=== PATIENT | male | born 1960 | race Caucasian/White ===

== ENCOUNTER 2021-10-12 14:07 | Emergency (ER) | payer OTHER ==
[2021-10-12] MEDS ORDERED: Sodium Chloride 0.9% 10 ML Syringe FLUSH PRN (14:42)
[2021-10-12] MEDS ORDERED: HYDROmorphone 0.5 MG/0.5 ML Syringe IVPUSH ONE (14:42)
[2021-10-12] MEDS ORDERED: Ondansetron 4 MG/2 ML SDV IVPUSH ONE (14:42)
[2021-10-12] MEDS ORDERED: Sodium Chloride 0.9% 1,000 ML IV SCH (14:45)
[2021-10-12] MEDS ORDERED: Ketorolac 30 MG/ML SDV IVPUSH ONE (15:31)
[2021-10-12] MEDS ORDERED: HYDROmorphone 1 MG/ML Syringe IVPUSH ONE (17:08)
== END 2021-10-12 19:46 | disposition home or self-care (01) ==
LOC: JD.ED 14:07
DX: K52.9 Noninfective gastroenteritis and colitis, unspecified (principal); M54.16 Radiculopathy, lumbar region; Z79.899 Other long term (current) drug therapy
CPT/HCPCS: 36415; 74176; 80053; 81001; 85025; 86140; 96374; 96375; 96376; 99284; J1170; J1885; J2405; J3490; J7030

== ENCOUNTER 2021-12-09 07:31 | Day surgery (SDC) | payer OTHER ==
[~2021-12-09 07:31] MED LIST: Lactated Ringers 1,000 ML IV SCH; Lidocaine 1%/Sod Bicarbonate in NS 8.4% 1 ML Syringe IDERM PRN; Sodium Chloride 0.9% 10 ML Syringe FLUSH PRN; Sodium Chloride 0.9% 10 ML Syringe FLUSH SCH
[2021-12-09] MEDS ORDERED: Propofol 200 MG/20 ML SDV ONE ×2 (08:03→09:26)
[2021-12-09] MEDS ORDERED: Midazolam 1 MG/ML 2 ML SDV ONE (08:03)
[2021-12-09] MEDS ORDERED: Albuterol 0.083% 2.5 MG/3 ML Neb Soln NEB ONE (08:24)
[2021-12-09] MEDS ORDERED: Lidocaine 1% 4 ML ONE (09:09)
== END 2021-12-09 10:45 | disposition home or self-care (01) ==
LOC: JD.SDS 07:31
PROVIDERS: ATTEND Surgery
DX: D12.0 Benign neoplasm of cecum (principal); K63.89 Other specified diseases of intestine; K57.30 Diverticulosis of large intestine without perforation or abscess without bleeding; I10 Essential (primary) hypertension; N40.0 Benign prostatic hyperplasia without lower urinary tract symptoms; N52.9 Male erectile dysfunction, unspecified; E78.00 Pure hypercholesterolemia, unspecified; G57.12 Meralgia paresthetica, left lower limb; G47.33 Obstructive sleep apnea (adult) (pediatric); F17.210 Nicotine dependence, cigarettes, uncomplicated; I25.10 Atherosclerotic heart disease of native coronary artery without angina pectoris; E11.42 Type 2 diabetes mellitus with diabetic polyneuropathy; Z79.899 Other long term (current) drug therapy; Z79.82 Long term (current) use of aspirin; Z98.890 Other specified postprocedural states
CPT/HCPCS: 45384; J2250; J2704; J7120; 00812

== ENCOUNTER 2022-12-27 15:51 | Emergency (ER) | payer OTHER ==
[2022-12-27] MEDS ORDERED: Lidocaine 1% 10 ML MDV INJECT ONE (18:56)
[2022-12-27] MEDS ORDERED: Sulfamethoxazole/Trimethoprim 800-160 MG Tab PO ONE (19:07)
== END 2022-12-27 20:31 | disposition home or self-care (01) ==
LOC: JD.ED 15:51
DX: L02.511 Cutaneous abscess of right hand (principal); I10 Essential (primary) hypertension; E78.00 Pure hypercholesterolemia, unspecified; I25.10 Atherosclerotic heart disease of native coronary artery without angina pectoris; E11.21 Type 2 diabetes mellitus with diabetic nephropathy; E11.43 Type 2 diabetes mellitus with diabetic autonomic (poly)neuropathy; Z79.82 Long term (current) use of aspirin
CPT/HCPCS: 26010; 99282; A9270; 10060; 99283; J3490

== ENCOUNTER 2024-02-20 17:33 | Emergency (ER) | payer OTHER ==
[2024-02-20] MEDS: Diphtheria,Pertussis(Acell),Tetanus Vaccine 0.5 ML Syringe IM ONE (19:12)
[2024-02-20] MEDS: Lidocaine 1% 10 ML MDV INJECT ONE (19:13)
== END 2024-02-20 19:50 | disposition home or self-care (01) ==
LOC: JD.ED 17:33
DX: S61.211A Laceration without foreign body of left index finger without damage to nail, initial encounter (principal); I25.10 Atherosclerotic heart disease of native coronary artery without angina pectoris; E78.00 Pure hypercholesterolemia, unspecified; I10 Essential (primary) hypertension; E11.42 Type 2 diabetes mellitus with diabetic polyneuropathy; E11.21 Type 2 diabetes mellitus with diabetic nephropathy; F17.210 Nicotine dependence, cigarettes, uncomplicated; Z23 Encounter for immunization; Z79.82 Long term (current) use of aspirin; Z79.899 Other long term (current) drug therapy; W31.2XXA Contact with powered woodworking and forming machines, initial encounter
CPT/HCPCS: 12001; 90471; 90715; 99282-25; 99283; J3490

== ENCOUNTER 2024-08-17 13:57 | Emergency (ER) | payer OTHER ==
[2024-08-17 14:54] LABS: BASOPHILS ABSOLUTE AUTO 0.1 K/mm3 (0.0-0.2); BASOPHILS PERCENT AUTO 0.4 % (0.0-1.0); EOSINOPHILS ABSOLUTE AUTO 0.3 K/mm3 (0.0-0.4); EOSINOPHILS PERCENT AUTO 1.9 % (0.0-6.0); HEMATOCRIT 41.4 % (42.0-52.0); IMMATURE GRAN ABSOLUTE AUTO 0.05 K/mm3 (0.00-0.05); IMMATURE GRAN PERCENT AUTO 0.4 % (0.0-0.4); LYMPHOCYTES ABSOLUTE AUTO 2.2 K/mm3 (1.0-4.8); LYMPHOCYTES PERCENT AUTO 15.5 % (24.0-44.0); MEAN CORPUSCULAR HEMOGLOBIN 29.6 pg (28.0-32.0); MEAN CORPUSCULAR HGB CONC 33.8 g/dl (32.0-36.0); MEAN CORPUSCULAR VOLUME 87.5 fl (83.0-99.0); MEAN PLATELET VOLUME 9.4 fl (9.4-12.4); MONOCYTES ABSOLUTE AUTO 0.9 K/mm3 (0.0-0.8); MONOCYTES PERCENT AUTO 6.7 % (0.0-8.0); NEUTROPHILS ABSOLUTE AUTO 10.5 K/mm3 (1.8-7.7); NEUTROPHILS PERCENT AUTO 75.1 % (41.0-71.0); PLATELET COUNT,PLT 272 K/mm3 (150-400); RED BLOOD CELL COUNT 4.73 M/mm3 (4.52-5.90); WHITE BLOOD CELL COUNT,WBC 14.01 K/mm3 (3.9-11.3)
[2024-08-17] MEDS: Iopamidol 755 Mg/ML 100 ML Bottle IVPUSH ONE (14:58)
[2024-08-17] MEDS: Sodium Chloride 0.9% 10 ML Syringe FLUSH ONE (14:58)
[2024-08-17] MEDS: Sodium Chloride 0.9% 100 ML IV SCH (14:58)
[2024-08-17 15:21] LABS: ALBUMIN 3.5 g/dl (3.4-5.0); ANION GAP 11.1 (5-15); BILIRUBIN TOTAL 0.3 mg/dL (0.2-1.0); BUN/CREATININE RATIO 17.5 (14-18); C-REACTIVE PROTEIN 1.25 mg/dL (<0.30); CALCIUM 9.3 mg/dL (8.5-10.1); CREATININE 1.2 mg/dL (0.7-1.3); EST CRCL DRUG DOSING (CG) 71.35 mL/min; POTASSIUM,K 4.1 mEq/L (3.5-5.1); PROTEIN TOTAL,TP 7.1 g/dl (6.4-8.2)
[2024-08-17] MEDS: fentaNYL 100 MCG/2 ML SDV IVPUSH ONE (15:58)
== END 2024-08-17 16:40 | disposition home or self-care (01) ==
LOC: JD.ED 13:57
DX: M54.2 Cervicalgia (principal); I10 Essential (primary) hypertension; E78.00 Pure hypercholesterolemia, unspecified; I25.10 Atherosclerotic heart disease of native coronary artery without angina pectoris; E11.21 Type 2 diabetes mellitus with diabetic nephropathy; E11.40 Type 2 diabetes mellitus with diabetic neuropathy, unspecified; Z79.02 Long term (current) use of antithrombotics/antiplatelets; Z79.899 Other long term (current) drug therapy
CPT/HCPCS: 36415; 70450; 70496; 70498; 80053; 82947; 84484; 85025; 86140; 96374; 99284; J3010; Q9967

== ENCOUNTER 2025-03-07 21:06 | Emergency (ER) | payer OTHER | END 2025-03-07 21:58 | disposition home or self-care (01) | LOC: JD.ED 21:06 | DX: L03.115 Cellulitis of right lower limb (principal); I25.10 Atherosclerotic heart disease of native coronary artery without angina pectoris; E78.00 Pure hypercholesterolemia, unspecified; I10 Essential (primary) hypertension; E11.40 Type 2 diabetes mellitus with diabetic neuropathy, unspecified; F17.210 Nicotine dependence, cigarettes, uncomplicated; Z79.899 Other long term (current) drug therapy | CPT/HCPCS: 87070; 87077; 87186; 87205; 99283 ==

== ENCOUNTER 2025-05-19 13:43 | Emergency (ER) | payer OTHER ==
[2025-05-19] MEDS ORDERED: Sodium Chloride 0.9% 10 ML Syringe FLUSH PRN (14:25)
[2025-05-19 14:47] LABS: BASOPHILS ABSOLUTE AUTO 0.0 K/mm3 (0.0-0.2); BASOPHILS PERCENT AUTO 0.3 % (0.0-1.0); EOSINOPHILS ABSOLUTE AUTO 0.2 K/mm3 (0.0-0.4); EOSINOPHILS PERCENT AUTO 1.1 % (0.0-6.0); IMMATURE GRAN ABSOLUTE AUTO 0.06 K/mm3 (0.00-0.05); IMMATURE GRAN PERCENT AUTO 0.4 % (0.0-0.4); LYMPHOCYTES ABSOLUTE AUTO 1.4 K/mm3 (1.0-4.8); LYMPHOCYTES PERCENT AUTO 9.7 % (24.0-44.0); MEAN PLATELET VOLUME 8.9 fl (9.4-12.4); MONOCYTES ABSOLUTE AUTO 1.0 K/mm3 (0.0-0.8); MONOCYTES PERCENT AUTO 6.7 % (0.0-8.0); NEUTROPHILS ABSOLUTE AUTO 12.2 K/mm3 (1.8-7.7); NEUTROPHILS PERCENT AUTO 81.8 % (41.0-71.0); NRBC ABSOLUTE 0.00 (0.00-0.02); NRBC PERCENT 0.0 % (0.0-0.2); PLATELET COUNT,PLT 280 K/mm3 (150-400); RED BLOOD CELL COUNT 5.13 M/mm3 (4.52-5.90); WHITE BLOOD CELL COUNT,WBC 14.86 K/mm3 (3.9-11.3)
[2025-05-19 15:22] LABS: A/G RATIO 0.8 (1-2); ALANINE AMINOTRANSFERASE,ALT 33.0 U/L (16-63); ASPARTATE AMNIOTRANSFERASE,AST 16.0 U/L (15-37); BILIRUBIN TOTAL 0.3 mg/dL (0.2-1.0); BLOOD UREA NITROGEN,BUN 16.0 mg/dL (7-18); CARBON DIOXIDE,CO2 26.0 mEq/L (21-32); CHLORIDE,CL 104.0 mEq/L (98-107); CREATININE 1.0 mg/dL (0.7-1.3); EST CRCL DRUG DOSING (CG) 84.48 mL/min; ESTIMATED GFR 83.0 mL/min (>60); GLUCOSE RANDOM 98.0 mg/dL (70-99); POTASSIUM,K 4.2 mEq/L (3.5-5.1); PROTEIN TOTAL,TP 7.1 g/dl (6.4-8.2); SODIUM,NA 140.0 mEq/L (136-145)
[2025-05-19] MEDS: Sodium Chloride 0.9% 10 ML Syringe FLUSH ONE (15:30)
[2025-05-19] MEDS: Iopamidol 612 MG/ML 100 ML Bottle IVPUSH ONE (15:30)
[2025-05-19 16:23] LABS: APPEARANCE,URINE CLEAR (Clear); GLUCOSE,URINE NEGATIVE (Negative); OCCULT BLOOD,URINE 3+ (Negative)
[2025-05-19 16:47] LABS: EPITHELIAL CELLS,URINE 0-5 /hpf (0-5)
== END 2025-05-19 17:50 | disposition home or self-care (01) ==
LOC: JD.ED 13:43
DX: N45.1 Epididymitis (principal); N39.0 Urinary tract infection, site not specified; I25.10 Atherosclerotic heart disease of native coronary artery without angina pectoris; Z79.899 Other long term (current) drug therapy; Z72.0 Tobacco use
CPT/HCPCS: 36415; 74177; 76870; 80053; 81001; 83690; 85025; 87086; 93975; 96374; 99284; J1171; J7030; Q9967